=== PATIENT | female | born 1965 | race Caucasian/White ===

== ENCOUNTER 2018-09-21 12:39 | Inpatient (IN) | payer OTHER ==
[~2018-09-21] VITALS: Ht 182.9 cm; Wt 67.0 kg
[~2018-09-21 12:39] MED LIST: GUAN2TAB5 PO; LISD70CA5 PO; ZOLOFT PO
--- NOTE | 2018-09-21 13:11 | NUR ---
FIRST CONTACT WITH PATIENT, REPORTS H/H LOW ON BLOOD WORK DONE LAST MON. SKIN PALE, JAUNDICED, WARM, DRY. A+OX4, NADN, FAMILY AT BEDSIDE, AWAITING LABS. CALL LIGHT WITHIN REACH.
[2018-09-21] MEDS ORDERED: SERT25TA PO (13:17)
[2018-09-21] MEDS ORDERED: ESTR0.5T PO (13:18)
[2018-09-21] MEDS ORDERED: SODIUM CHLORIDE FLUSH 10ML SYR IVF ONE (13:30)
--- NOTE | 2018-09-21 13:32 | NUR ---
IV ESTABLISHED, LABS DRAWN. PATIENT TALKING TO FAMILY AT BEDSIDE,
[2018-09-21 13:58] LABS: INTERNATIONAL NORMALIZED RATIO 0.99 (0.93-1.1); PROTHROMBIN TIME 10.5 Seconds (9.6-11.5)
[2018-09-21 14:02] LABS: ALANINE AMINOTRANSFERASE 26 U/L (12-78); ANION GAP 7 mmol/L (5-15); CALCIUM 8.6 mg/dL (8.5-10.1); CHLORIDE 107 mmol/L (98-107); CREATININE 0.94 mg/dL (0.55-1.02)
[2018-09-21 14:04] LABS: ALKALINE PHOSPHATASE 78 U/L (45-117); BILIRUBIN,TOTAL 2.9 mg/dL (0.2-1.0); TOTAL PROTEIN 6.9 g/dL (6.4-8.2)
[2018-09-21 14:24] LABS: MEAN CORPUSCULAR HEMOGLOBIN 36.6 pg (27.0-34.8); MEAN CORPUSCULAR HGB CONC 35.1 g/dL (32.4-35.8); MEAN CORPUSCULAR VOLUME 104.2 fL (80-100); MEAN PLATELET VOLUME 7.4 fL (7.4-10.4); PLATELET COUNT 428 x10^3/uL (130-400); RED BLOOD COUNT 1.77 x10^6/uL (3.82-5.3)
[2018-09-21 14:28] LABS: RED CELL DISTRIBUTION WIDTH 17.9 % (9.6-15.2)
[2018-09-21 14:35] LABS: ANISOCYTOSIS 1+; BASOPHILS # (AUTO) 0.07 x10^3/uL (0-0.1); BASOPHILS % (AUTO) 1 % (0-1); EOSINOPHILS # (AUTO) 0.07 x10^3/uL (0-0.4); EOSINOPHILS % (AUTO) 1 % (1-7); LYMPHOCYTES # (AUTO) 1.52 x10^3/uL (1-3.4); LYMPHOCYTES % (AUTO) 18 % (22-44); MD MORPH REVIEW ONLY; MONOCYTES # (AUTO) 0.33 x10^3/uL (0.2-0.8); MONOCYTES % (AUTO) 4 % (2-9); NEUTROPHILS # (AUTO) 6.57 x10^3/uL (1.8-6.8); NEUTROPHILS % (AUTO) 77 % (42-75); POLYCHROMASIA 1+
[2018-09-21 14:38] LABS: <PLATELET ESTIMATE> INCREASED; <PLT MORPHOLOGY> NORMAL PLT MORPH
--- NOTE | 2018-09-21 15:06 | NUR ---
US AT BESIDE, BLOOD CONSENT FORM SIGNED, PURPLE SLIP FILLED OUT, AWAITING [facility] TO BE READY. PATIENT LAYING COMFORTABLY IN GURNEY, FRIENDS/FAMILY AT BEDSIDE, NADN.
[2018-09-21] MEDS ORDERED: SODIUM CHLORIDE FLUSH 10ML SYR IVF PRN (15:30)
--- NOTE | 2018-09-21 15:39 | NUR ---
[facility] RESIDENTS AT BEDSIDE.
[2018-09-21 15:53] VITALS: BP_SYST 108; BP_SYST 124; BP_DIAS 38; BP_DIAS 56
--- NOTE | 2018-09-21 16:12 | NUR ---
PATIENT TRANSFERRED/ADMITTED TO HOSPITAL BED UPSTAIRS.
[2018-09-21] MEDS ORDERED: ENOXAPARIN 40 MG/0.4 ML SQ SCH (16:30)
[2018-09-21] MEDS ORDERED: ACETAMINOPHEN 325 MG TABLET PO PRN (16:30)
[2018-09-21 16:31] VITALS: BP 105/67
[2018-09-21 16:56] VITALS: BP 105/67
[2018-09-21 17:45] VITALS: BP 104/61
[2018-09-21 18:12] LABS: FOLATE LEVEL 14.3 ng/mL (3.1-17.5); FREE T4 (FREE THYROXINE) 0.78 ng/dL (0.76-1.46); THYROID STIMULATING HORMONE 1.75 mIU/L (0.358-3.740)
[2018-09-21 18:20] VITALS: BP 105/67
[2018-09-21 19:54] LABS: RED BLOOD COUNT 1.45 x10^6/uL (3.82-5.3)
[2018-09-21 19:59] LABS: ABSOLUTE RETICS # 0.145 x10^6/uL (0.5-2.5)
[2018-09-21 20:17] VITALS: BP 98/64
[2018-09-21] MEDS: TRAZODONE 50MG TABLET PO PRN (21:53)
[2018-09-22] VITALS (7 sets, daily range): BP systolic 94–112; BP diastolic 54–68
[2018-09-22 06:51] LABS: ALANINE AMINOTRANSFERASE 21 U/L (12-78); ALBUMIN 3.5 g/dL (3.4-5.0); ANION GAP 5 mmol/L (5-15); BILIRUBIN, DIRECT 0.5 mg/dL (0.1-0.2); CALCIUM 8.3 mg/dL (8.5-10.1); CHLORIDE 110 mmol/L (98-107); CREATININE 0.83 mg/dL (0.55-1.02)
[2018-09-22 06:53] LABS: ALKALINE PHOSPHATASE 68 U/L (45-117); BILIRUBIN,INDIRECT 1.8 mg/dL (0.0-2.0); BILIRUBIN,TOTAL 2.3 mg/dL (0.2-1.0); TOTAL PROTEIN 6.2 g/dL (6.4-8.2)
[2018-09-22] MEDS: FAMOTIDINE 20 MG TABLET PO SCH (08:36)
[2018-09-22] MEDS: SENNA/DOCUSATE TABLET PO SCH (08:36)
[2018-09-22] MEDS: SERTRALINE 50MG TABLET PO SCH (08:36)
[2018-09-22 21:34] LABS: HCT (SEDRATE) 25.2 % (34.6-47.8)
[2018-09-22 22:41] LABS: MICROSCOPIC NOT IND
[2018-09-22 22:45] LABS: CULTURE INDICATED? NO
[2018-09-22] MEDS: TRAZODONE 50MG TABLET PO PRN (22:53)
[2018-09-23 00:23] LABS: OCCULT BLOOD NEGATIVE (NEGATIVE)
[2018-09-23 00:24] VITALS: BP 106/59
[2018-09-23 06:25] VITALS: BP 95/53
[2018-09-23] MEDS: FAMOTIDINE 20 MG TABLET PO SCH (08:57)
[2018-09-23] MEDS: FOLIC ACID 1 MG TABLET PO SCH (08:57)
[2018-09-23] MEDS: SERTRALINE 50MG TABLET PO SCH (08:57)
[2018-09-23] MEDS: SENNA/DOCUSATE TABLET PO SCH (09:00)
[2018-09-23 09:28] LABS: MEAN CORPUSCULAR HEMOGLOBIN 35.5 pg (27.0-34.8); MEAN CORPUSCULAR HGB CONC 34.8 g/dL (32.4-35.8); MEAN PLATELET VOLUME 7.2 fL (7.4-10.4); PLATELET COUNT 350 x10^3/uL (130-400); RED BLOOD COUNT 2.42 x10^6/uL (3.82-5.3); RED CELL DISTRIBUTION WIDTH 18.8 % (9.6-15.2)
[2018-09-23 09:31] LABS: BASOPHILS # (AUTO) 0.01 x10^3/uL (0-0.1); BASOPHILS % (AUTO) 0 % (0-1); EOSINOPHILS # (AUTO) 0.03 x10^3/uL (0-0.4); EOSINOPHILS % (AUTO) 0 % (1-7); LYMPHOCYTES # (AUTO) 1.92 x10^3/uL (1-3.4); LYMPHOCYTES % (AUTO) 20 % (22-44); MONOCYTES # (AUTO) 0.69 x10^3/uL (0.2-0.8); MONOCYTES % (AUTO) 7 % (2-9); NEUTROPHILS # (AUTO) 7.01 x10^3/uL (1.8-6.8); NEUTROPHILS % (AUTO) 73 % (42-75)
[2018-09-23 09:41] LABS: ANISOCYTOSIS 1+; MD MORPH REVIEW ONLY; POLYCHROMASIA 1+
[2018-09-23 09:42] LABS: <PLATELET ESTIMATE> ADEQUATE; <PLT MORPHOLOGY> NORMAL PLT MORPH
[2018-09-23 10:50] LABS: ABSOLUTE RETICS # 0.28 x10^6/uL (0.5-2.5); RETICULOCYTE COUNT % 11.73 % (0.5-1.5)
[2018-09-23 10:52] LABS: RED BLOOD COUNT 2.42 x10^6/uL (3.82-5.3)
[2018-09-23] MEDS ORDERED: OMNIPAQUE 350 MG/ML, 100ML BOTTLE ONE (11:35)
[2018-09-23 12:00] VITALS: BP 101/66
[2018-09-23 19:51] VITALS: BP 100/62
[2018-09-23] MEDS ORDERED: DIPHENHYDRAMINE 25 MG CAPSULE PO ONE (21:00)
[2018-09-24 01:57] VITALS: BP 83/52
[2018-09-24] MEDS ORDERED: SODIUM CHLORIDE 0.9%, 500ML IVBOLUS ONE (02:30)
[2018-09-24 02:54] VITALS: BP 90/53
[2018-09-24 06:36] VITALS: BP 95/60
[2018-09-24] MEDS: FOLIC ACID 1 MG TABLET PO SCH (08:25)
[2018-09-24] MEDS: SERTRALINE 50MG TABLET PO SCH (08:26)
[2018-09-24] MEDS: SENNA/DOCUSATE TABLET PO SCH (08:26)
[2018-09-24] MEDS: FAMOTIDINE 20 MG TABLET PO SCH (08:26)
[2018-09-24 09:01] LABS: ABSOLUTE RETICS # 0.271 x10^6/uL (0.5-2.5); RETICULOCYTE COUNT % 11.28 % (0.5-1.5)
[2018-09-24 09:04] LABS: RED BLOOD COUNT 2.4 x10^6/uL (3.82-5.3)
[2018-09-24 12:01] VITALS: BP 116/70
[2018-09-24 18:38] VITALS: BP 106/64
[2018-09-25 03:43] VITALS: BP 92/58
[2018-09-25 06:36] VITALS: BP 103/53
[2018-09-25 08:15] LABS: RED BLOOD COUNT 2.39 x10^6/uL (3.82-5.3)
[2018-09-25 08:21] LABS: ABSOLUTE RETICS # 0.224 x10^6/uL (0.5-2.5); RETICULOCYTE COUNT % 9.56 % (0.5-1.5)
[2018-09-25 08:25] LABS: MEAN CORPUSCULAR VOLUME 102.8 fL (80-100); MEAN PLATELET VOLUME 7.2 fL (7.4-10.4); PLATELET COUNT 338 x10^3/uL (130-400); RED BLOOD COUNT 2.42 x10^6/uL (3.82-5.3); RED CELL DISTRIBUTION WIDTH 17.4 % (9.6-15.2)
[2018-09-25 08:32] LABS: BASOPHILS # (AUTO) 0.09 x10^3/uL (0-0.1); BASOPHILS % (AUTO) 1 % (0-1); EOSINOPHILS # (AUTO) 0.03 x10^3/uL (0-0.4); EOSINOPHILS % (AUTO) 0 % (1-7); LYMPHOCYTES # (AUTO) 3.06 x10^3/uL (1-3.4); LYMPHOCYTES % (AUTO) 37 % (22-44); MD MORPH REVIEW ONLY; MONOCYTES # (AUTO) 0.58 x10^3/uL (0.2-0.8); MONOCYTES % (AUTO) 7 % (2-9); NEUTROPHILS # (AUTO) 4.46 x10^3/uL (1.8-6.8); NEUTROPHILS % (AUTO) 54 % (42-75)
[2018-09-25] MEDS: SERTRALINE 50MG TABLET PO SCH (09:00)
[2018-09-25] MEDS: SENNA/DOCUSATE TABLET PO SCH (09:20)
[2018-09-25] MEDS: FOLIC ACID 1 MG TABLET PO SCH (09:20)
[2018-09-25] MEDS: FAMOTIDINE 20 MG TABLET PO SCH (09:20)
[2018-09-25 09:36] LABS: ANISOCYTOSIS 1+; HYPOCHROMIA 1+
[2018-09-25 09:37] LABS: <PLATELET ESTIMATE> ADEQUATE; <PLT MORPHOLOGY> NORMAL PLT MORPH; POLYCHROMASIA 1+
[2018-09-25 13:28] VITALS: BP 98/59
[2018-09-25] MEDS ORDERED: PRED20TA PO (14:10)
[2018-09-25] MEDS ORDERED: FOLI-17 PO (14:10)
[2018-09-25 15:49] LABS: ANA SCREEN POSITIVE (Negative)
[2018-09-25 15:50] LABS: ANTI-NUCLEAR ANTIBODY PATTERN SPECKLED
== END 2018-09-25 16:16 | disposition home or self-care (01) | DRG 809 ==
LOC: ED 15:03 → EDIP 15:04 → ED 15:14 → 3NE 16:17 → DCLOUNGE 09-25 15:53
PROVIDERS: ADMIT Family Medicine; ATTEND Family Medicine
PROC: 30233N1 Transfusion of Nonautologous Red Blood Cells into Peripheral Vein, Percutaneous Approach (ICD-10-PCS; principal; 2018-09-21)
DX: D59.1 Other autoimmune hemolytic anemias (principal); C85.90 Non-Hodgkin lymphoma, unspecified, unspecified site; D53.9 Nutritional anemia, unspecified; D75.89 Other specified diseases of blood and blood-forming organs; F32.9 Major depressive disorder, single episode, unspecified; F41.1 Generalized anxiety disorder; A49.3 Mycoplasma infection, unspecified site; F90.9 Attention-deficit hyperactivity disorder, unspecified type; G25.81 Restless legs syndrome; K59.00 Constipation, unspecified; M06.9 Rheumatoid arthritis, unspecified; Z90.710 Acquired absence of both cervix and uterus; Z87.11 Personal history of peptic ulcer disease
CPT/HCPCS: 36415; 71260; 74177; 76700; 80053; 81003; 82247; 82248; 82272; 82274; 82607; 82746; 82784; 83010; 83540; 83550; 83615; 84155; 84165; 84439; 84443; 85014; 85018; 85025; 85045; 85610; 85651; 85730; 86038; 86039; 86157; 86334; 86430; 86705; 86706; 86803; 86850; 86870; 86880; 86900; 86920; 86922; 86923; 86940; 86941; 87340; 87806; G0378; Q9967; G0475; J7040; J7512; P9016; Q0163

== ENCOUNTER 2018-10-22 09:05 | Day surgery (SDC) | payer OTHER ==
[~2018-10-22] VITALS: Ht 182.9 cm; Wt 84.5 kg
[~2018-10-22 09:05] MED LIST changes: +ESTR0.5T PO; +FOLI-17 PO; +PRED20TA PO; +SERT25TA PO
[2018-10-22] MEDS ORDERED: SODIUM CHLORIDE 0.9% 1,000 ML IV SCH (09:39)
[2018-10-22 10:00] VITALS: BP 108/73
[2018-10-22 10:04] LABS: BASOPHILS # (AUTO) 0.09 x10^3/uL (0-0.1); BASOPHILS % (AUTO) 1 % (0-1); EOSINOPHILS # (AUTO) 0.06 x10^3/uL (0-0.4); EOSINOPHILS % (AUTO) 1 % (1-7); LYMPHOCYTES # (AUTO) 2.05 x10^3/uL (1-3.4); LYMPHOCYTES % (AUTO) 23 % (22-44); MD NO; MEAN CORPUSCULAR HEMOGLOBIN 34.6 pg (27.0-34.8); MEAN CORPUSCULAR HGB CONC 35.3 g/dL (32.4-35.8); MEAN PLATELET VOLUME 6.1 fL (7.4-10.4); MONOCYTES # (AUTO) 0.41 x10^3/uL (0.2-0.8); MONOCYTES % (AUTO) 5 % (2-9); NEUTROPHILS # (AUTO) 6.39 x10^3/uL (1.8-6.8); NEUTROPHILS % (AUTO) 71 % (42-75); PLATELET COUNT 396 x10^3/uL (130-400); RED BLOOD COUNT 2.52 x10^6/uL (3.82-5.3); RED CELL DISTRIBUTION WIDTH 20.9 % (9.6-15.2)
[2018-10-22] MEDS ORDERED: CYCL25CA11 PO (10:09)
[2018-10-22] MEDS ORDERED: OMEP-110 PO (10:09)
[2018-10-22] MEDS ORDERED: PRED20TA PO (10:09)
[2018-10-22] MEDS ORDERED: LIDOCAINE-MPF 1%, 5ML ONE (10:40)
[2018-10-22] MEDS ORDERED: FENTANYL PF 100 MCG/2ML ONE (10:53)
[2018-10-22] MEDS ORDERED: NALOXONE 1 MG/ML, 2ML ONE (10:54)
[2018-10-22] MEDS ORDERED: FLUMAZENIL 0.1 MG/1 ML, 5ML ONE (10:54)
[2018-10-22] MEDS ORDERED: MIDAZOLAM 1 MG/ML, 5ML ONE ×2 (10:54)
== END 2018-10-22 13:20 | disposition home or self-care (01) ==
LOC: OUT 09:05
PROVIDERS: ATTEND Internal Medicine
DX: D72.820 Lymphocytosis (symptomatic) (principal); D59.9 Acquired hemolytic anemia, unspecified; F41.9 Anxiety disorder, unspecified; F32.9 Major depressive disorder, single episode, unspecified; Z90.710 Acquired absence of both cervix and uterus; Z98.890 Other specified postprocedural states; Z72.89 Other problems related to lifestyle
CPT/HCPCS: 36415; 38222; 77012; 85025; 85060; 85097; 88237; 88264; 88280; 88305; 88311; 88313; 88341; 88342; 99156; J2250; J3010; J7030; 99157; J2310

== ENCOUNTER 2018-10-25 17:39 | Emergency (ER) | payer OTHER ==
[~2018-10-25] VITALS: Ht 182.9 cm; Wt 85.5 kg
[~2018-10-25 17:39] MED LIST changes: +CYCL25CA11 PO; +OMEP-110 PO
--- NOTE | 2018-10-25 18:31 | NUR ---
PT AMBULATORY TO & FROM BR W/OUT INCIDENT; VOIDED URINE SPECIMEN PROVIDED - CLEAR RINKU. PT DENIES LIGHT HEADEDNESS, DIZZINESS W/ POSITION CHANGES. HG 8.7 MONDAY, 8.2 ON 10/23. STATES SHE WOKE UP TODAY FEELING "ICKY". PT'S FATHER'S IS TOMORROW. PER FRIEND, PT HAD BONE BIOPSY ON MONDAY.
[2018-10-25 18:36] LABS: ALANINE AMINOTRANSFERASE 31 U/L (12-78); ANION GAP 7 mmol/L (5-15); CALCIUM 8.7 mg/dL (8.5-10.1); CHLORIDE 106 mmol/L (98-107); CREATININE 0.87 mg/dL (0.55-1.02)
[2018-10-25 18:37] LABS: INTERNATIONAL NORMALIZED RATIO 0.96 (0.93-1.1); PROTHROMBIN TIME 10.2 Seconds (9.6-11.5)
[2018-10-25 18:38] LABS: ALKALINE PHOSPHATASE 88 U/L (45-117); BILIRUBIN,TOTAL 2.4 mg/dL (0.2-1.0); TOTAL PROTEIN 6.7 g/dL (6.4-8.2)
[2018-10-25] MEDS ORDERED: ALPR0.254 PO (18:44)
[2018-10-25] MEDS ORDERED: SERT100T32 PO (18:44)
[2018-10-25] MEDS ORDERED: ACYCLOVIR PO (18:44)
--- NOTE | 2018-10-25 18:56 | NUR ---
PT REPORT TO JOSHUA MALLOY. PT CARE TRANSFERRED.
--- NOTE | 2018-10-25 18:59 | NUR ---
REPORT RECEIVED FROM JOSHUA CABALLERO. ASSUMED CARE OF PT. PT RESTING ON GURNEY IN NAD. VITALS STABLE. AWAITING LABS AT THIS TIME, WILL CONTINUE TO MONITOR.
[2018-10-25 19:16] LABS: MICROSCOPIC NOT IND
[2018-10-25 19:22] LABS: MEAN CORPUSCULAR HEMOGLOBIN 34.3 pg (27.0-34.8); MEAN CORPUSCULAR HGB CONC 35.9 g/dL (32.4-35.8); MEAN CORPUSCULAR VOLUME 95.5 fL (80-100); MEAN PLATELET VOLUME 6.2 fL (7.4-10.4); PLATELET COUNT 419 x10^3/uL (130-400); RED BLOOD COUNT 2.06 x10^6/uL (3.82-5.3); RED CELL DISTRIBUTION WIDTH 21.9 % (9.6-15.2)
[2018-10-25 19:39] LABS: CULTURE INDICATED? NO
[2018-10-25 19:47] LABS: BASOPHILS # (AUTO) 0.05 x10^3/uL (0-0.1); BASOPHILS % (AUTO) 1 % (0-1); EOSINOPHILS % (AUTO) 0 % (1-7); LYMPHOCYTES % (AUTO) 10 % (22-44); MD SCAN; MONOCYTES # (AUTO) 0.45 x10^3/uL (0.2-0.8); MONOCYTES % (AUTO) 6 % (2-9); NEUTROPHILS # (AUTO) 6.54 x10^3/uL (1.8-6.8); NEUTROPHILS % (AUTO) 83 % (42-75)
--- NOTE | 2018-10-25 19:52 | NUR ---
IV ESTABLISHED. AWAITING BLOOD AT THIS TIME. PT DENIES ANY COMPLAINTS. VITALS STABLE.
[2018-10-25 20:39] VITALS: BP 122/56
--- NOTE | 2018-10-25 20:40 | NUR ---
TRANSFUSION STARTED, VERIFIED WITH JOSHUA CASTILLO.
[2018-10-25 20:56] VITALS: BP 102/64
--- NOTE | 2018-10-25 21:40 | NUR ---
TRANSFUSION FINISHED. PT DENIES ANY COMPLAINTS. PT REQUESTING TO SPEAK WITH ERP IN REGARDS TO SECOND UNIT. ALL VITALS STABLE.
[2018-10-25 21:41] VITALS: BP 106/53
--- NOTE | 2018-10-25 23:02 | NUR ---
BLOOD READY. PURPLE SLIP SENT TO BLOOD BANK.
[2018-10-25 23:19] VITALS: BP 112/60
--- NOTE | 2018-10-25 23:21 | NUR ---
SECOND UNIT OF BLOOD STARTED. VERIFIED BY JOSHUA CASTILLO. PT DENIES ANY COMPLAINTS AT THIS TIME. RESTING COMFORTABLY ON GURNEY. VITALS STABLE. CALL LIGHT WITHIN REACH.
[2018-10-25 23:38] VITALS: BP 110/52
--- NOTE | 2018-10-25 23:39 | NUR ---
PT TOLERATING INFUSION WELL. DENIES ANY COMPLAINTS AT THIS TIME. VITALS STABLE. CALL LIGHT WITHIN REACH
[2018-10-26 00:19] VITALS: BP 117/61
--- NOTE | 2018-10-26 00:23 | NUR ---
TRANSFUSION COMPLETE. VITALS STABLE. PT DENIES ANY COMPLAINTS.
--- NOTE | 2018-10-26 00:47 | NUR ---
Patient/Caregiver given discharge instructions and they have confirmed that they understand the instructions. Patient ambulatory with steady gait.
== END 2018-10-26 00:50 | disposition home or self-care (01) ==
LOC: ED 18:58
DX: D59.1 Other autoimmune hemolytic anemias (principal); F41.1 Generalized anxiety disorder; F98.8 Other specified behavioral and emotional disorders with onset usually occurring in childhood and adolescence; Z90.710 Acquired absence of both cervix and uterus
CPT/HCPCS: 36415; 71045; 80053; 81003; 85025; 85610; 85730; 86850; 86900; 86923; 93005; 99284; P9016